=== PATIENT | female | born 1970 | race Caucasian/White ===

== ENCOUNTER 2018-11-21 16:33 | Emergency (ER) | payer OTHER ==
[2018-11-21 16:54] VITALS: BMI 29.2
[2018-11-21] MEDS ORDERED: ACETAMINOPHEN 1000 MG/100 ML VIAL (NON FORMULARY) IVPB ONE (17:14)
[2018-11-21] MEDS ORDERED: FAMOTIDINE 20 MG/50 ML IVPB 20 MG/50 ML MG IVPB ONE ×2 (17:14→17:27)
[2018-11-21] MEDS ORDERED: ONDANSETRON *ODT* 4 MG TABLET SL ONE (17:14)
[2018-11-21] MEDS ORDERED: ONDANSETRON *ODT* 4 MG TABLET ONE (17:27)
[2018-11-21] MEDS ORDERED: ACETAMINOPHEN INJECTION 100 ML IVPB ONE (17:27)
--- NOTE | 2018-11-21 17:28 | PDOC ---
History of Present Illness - General Chief Complaint: Pain, Acute Stated Complaint: PAIN Time Seen by Provider: 11/21/18 17:04 History Source: Patient Exam Limitations: Clinical Condition - History of Present Illness Initial Comments: 11/21/18 17:24 Patient with no significant past medical history present with complaint of three -day history of nausea, vomiting, epigastric pain, bodyaches, headache and fever. Patient reported last episode of vomiting was yesterday. Patient reported 2 episodes of diarrhea and intermittent epigastric pains. Patient reported taking Tylenol every 5 hours since yesterday for symptoms persist symptoms still persist. Patient reports severe body aches now. Patient did not get a flu vaccine. Patient denies any other symptoms Timing/Duration: other (3 days) Past History - Past Medical History Allergies/Adverse Reactions: Allergies Allergy/AdvReac Type Severity Reaction Status Date / Time No Known Allergies Allergy Verified 11/21/18 16:53 Home Medications: Ambulatory Orders Ipratropium [place] 2 spray NS BID PRN #1 spray 11/21/18 Methylprednisolone [Medrol Dose Ronnie] 4 mg PO ASDIR #21 tablet 11/21/18 Ondansetron [Zofran Odt -] 4 mg SL Q8H PRN #12 od.tablet 11/21/18 COPD: No - Immunization History Immunization Up to Date: Yes - Suicide/Smoking/Psychosocial Hx Smoking History: Never smoked Hx Alcohol Use: No Drug/Substance Use Hx: No Review of Systems - Review of Systems Able to Perform ROS?: Yes Is the patient limited Romansh proficient: No Constitutional: Yes: See HPI, Chills, Fever, Malaise HEENTM: Yes: Symptoms Reported, See HPI, Nose Congestion. No: Eye Pain, Blurred Vision, Tearing, Recent change in vision, Double Vision, Cataracts, Ear Pain, Ocular Prothesis, Ear Discharge, Nose Pain, Tinnitus, Nose Bleeding, Hearing Loss, Throat Pain, Throat Swelling, Mouth Pain, Dental Problems, Difficulty Swallowing, Mouth Swelling, Other Respiratory: Yes: Symptoms reported, See HPI, Cough (intermittent). No: Orthopnea, Shortness of Breath, SOB with Exertion, SOB at Rest, Stridor, Wheezing, Productive cough, Hemoptysis, Other Cardiac (ROS): No: Symptoms Reported, See HPI, Chest Pain, Edema, Irregular Heart Rate, Lightheadedness, Palpitations, Syncope, Chest Tightness, Other ABD/GI: Yes: See HPI, Diarrhea, Nausea, Vomiting, Abdominal cramping (epigastric ). No: Constipated, Rectal Bleeding : No: Burning, Discharge, Frequency, Urgency Musculoskeletal: No: Back Pain Neurological: Yes: Headache. No: Dizziness All Other Systems: Reviewed and Negative *Physical Exam - Vital Signs Last Vital Signs Temp Pulse Resp BP Pulse Ox 100.3 F H 95 H 16 121/79 98 11/21/18 16:51 11/21/18 16:51 11/21/18 16:51 11/21/18 16:51 11/21/18 16:51 - Physical Exam Comments: 11/21/18 17:37 GENERAL: Well developed, well nourished. Awake and alert in mild acute distress. HEENT: Normocephalic, atraumatic. PERRLA, EOMI. No conjunctival pallor. Sclera are non-icteric. Moist mucous membranes. Oropharynx is clear. NECK: Supple. Full ROM. CARDIOVASCULAR: Regular rate and rhythm. No murmurs, rubs, or gallops. Distal pulses are 2+ and symmetric. PULMONARY: No evidence of respiratory distress. Lungs clear to auscultation bilaterally. No wheezing, rales or rhonchi. ABDOMINAL: mild epigastric tenderness. Soft. Non-distended. No rebound or guarding. No organomegaly. Normoactive bowel sounds. EXTREMITIES: No cyanosis. SKIN: Warm and dry. Normal capillary refill. No rashes. No jaundice. NEUROLOGICAL: Alert, awake, appropriate. Gait is normal without ataxia. PSYCHIATRIC: Cooperative. Good eye contact. Appropriate mood General Appearance: Yes: Nourished, Appropriately Dressed, Apparent Distress, Mild Distress HEENT: positive: Normal ENT Inspection Moderate Sedation - Procedure Monitoring Vital Signs: Procedure Monitoring Vital Signs Temperature 100.3 F H 11/21/18 16:51 Pulse Rate 95 H 11/21/18 16:51 Respiratory Rate 16 11/21/18 16:51 Blood Pressure 121/79 11/21/18 16:51 O2 Sat by Pulse Oximetry (%) 98 11/21/18 16:51 ED Treatment Course - LABORATORY CBC & Chemistry Diagram: 11/21/18 17:22 11/21/18 17:22 Medical Decision Making - Medical Decision Making 11/21/18 17:38 Patient with no significant past medical history present with complaint of three -day history of nausea, vomiting, epigastric pain, bodyaches, headache and fever. Patient reported last episode of vomiting was yesterday. Patient reported 2 episodes of diarrhea and intermittent epigastric pains. Patient reported taking Tylenol every 5 hours since yesterday for symptoms persist symptoms still persist. Exam significant for mild epigastric tenderness without guarding or rebound. Patient with fever of 100.2F taken orally. Lungs clear to auscultation bilateral. Patient in mild distress due to diffuse body aches. Normal cardiac exam. Rapid flu tests ordered, CBC, CMP and urine labs ordered. Zofran 4 mg sublingual ordered for nausea. Tylenol 1 g IV ordered for fever and headache. Pepcid 20 mg IV and Maalox 30 mL by mouth ordered for epigastric pain. Treat based on lab results. 11/21/18 17:56 Flu test positive for influenza A. CBC shows no acute pathology. Chemistry labs still pending. 11/21/18 18:45 Chemistry lab with no significant findings. Patient reported feeling better after given Tylenol, Pepcid and, Maalox and Zofran. Patient is stable for outpatient treatment for viral syndrome with PCP follow-up as needed. *DC/Admit/Observation/Transfer Diagnosis at time of Disposition: Influenza A, Epigastric abdominal pain Nausea & vomiting Qualifiers: Vomiting type: unspecified Vomiting Intractability: non-intractable Qualified Code(s): R11.2 - Nausea with vomiting, unspecified - Discharge Dispostion Disposition: HOME Condition at time of disposition: Stable Decision to Admit order: No - Prescriptions Prescriptions: Ipratropium [place] 2 spray NS BID PRN #1 spray PRN Reason: nasal congestion Methylprednisolone [Medrol Dose Ronnie] 4 mg PO ASDIR #21 tablet Ondansetron [Zofran Odt -] 4 mg SL Q8H PRN #12 od.tablet PRN Reason: nausea - Referrals - Patient Instructions Printed Discharge Instructions: Influenza Additional Instructions: Your lab was positive for influenza A. Take medications as prescribed. Increase fluid intake. Alternate between Tylenol and Motrin as needed for fever. Follow- up with primary care. Print Language: SLOVENIAN - Post Discharge Activity Forms/Work/School Notes: Back to Work
[2018-11-21 17:36] LABS: URINE APPEARANCE SLCLOUDY; URINE BILIRUBIN NEGATIVE (<2.0 mg/dL); URINE COLOR YELLOW; URINE GLUCOSE (UA) NEGATIVE (NEGATIVE); URINE KETONE TRACE (NEGATIVE); URINE LEUK ESTERASE TRACE (NEGATIVE); URINE NITRITE NEGATIVE (NEGATIVE); URINE PROTEIN 1+ (NEGATIVE); URINE UROBILINOGEN NEGATIVE mg/dL (0.2-1.0)
[2018-11-21 17:40] LABS: BASO % 0.8 % (0-2.0); EOS % 0.2 % (0-4.5); HEMATOCRIT 43.5 % (32.4-45.2); HEMOGLOBIN 15.3 GM/dL (10.7-15.3); LYMPH % 15.6 % (8-40); MCH 32.3 pg (25.7-33.7); MCHC 35.1 g/dl (32.0-36.0); MEAN CELL VOLUME 91.9 fl (80-96); MEAN PLT VOLUME 8.4 fl (7.5-11.1); MONO % 13.2 % (3.8-10.2); NEUT % 70.2 % (42.8-82.8); PLATELET COUNT 227 K/MM3 (134-434); RBC 4.73 M/mm3 (3.60-5.2); WHITE BLOOD COUNT 7.4 K/mm3 (4.0-10.0)
[2018-11-21 17:45] LABS: EPI CELLS MODERATE /HPF (FEW); URINE MUCUS RARE
[2018-11-21 18:43] LABS: CO2 26 mmol/L (21-32); CREATININE 0.8 mg/dL (0.55-1.3)
[2018-11-21 18:53] LABS: ALK PHOS 93 U/L (45-117); ANION GAP 8 MMOL/L (8-16); BILIRUBIN,TOTAL 0.3 mg/dL (0.2-1); BLOOD UREA NITROGEN 8 mg/dL (7-18); CALCIUM 8.4 mg/dL (8.5-10.1); CHLORIDE 102 mmol/L (98-107); GLUCOSE,RANDOM 110 mg/dL (74-106); POTASSIUM 3.8 mmol/L (3.5-5.1); SGOT/AST 48 U/L (15-37); SGPT/ALT 52 U/L (13-61); SODIUM 136 mmol/L (136-145); TOT PROT 8.8 g/dl (6.4-8.2)
[2018-11-21 19:06] VITALS: BP 108/79; PULSE 73; TEMP 98.8
== END 2018-11-21 19:32 | disposition home or self-care (01) ==
LOC: JER 16:33
PROC: 3E033GC Introduction of Other Therapeutic Substance into Peripheral Vein, Percutaneous Approach (ICD-10-PCS; principal; 2018-11-21)
PROC: 3E033NZ Introduction of Analgesics, Hypnotics, Sedatives into Peripheral Vein, Percutaneous Approach (ICD-10-PCS; 2018-11-21)
DX: J09.X3 Influenza due to identified novel influenza A virus with gastrointestinal manifestations (principal)
CPT/HCPCS: 36415; 80053; 81003; 81015; 85025; 87086; 87804; 96365; 96375; 99283-25; J0131; Q0162